=== PATIENT | female | born 1970 | race African-American/Black ===

== ENCOUNTER 2018-07-10 00:29 | Emergency (ER) | payer OTHER ==
[~2018-07-10] VITALS: Ht 167.6 cm; Wt 88.5 kg
[2018-07-10 00:32] VITALS: TEMP 98.1
[2018-07-10 00:58] LABS: BASO % 0.3 % (0.0-2.0); EOS # 0.1 (0.0-0.7); EOS % 1.8 % (0-4.0); GRAN # 3.2 (1.4-6.5); GRAN % 49.4 % (42.2-75.2); HEMOGLOBIN 12.1 g/dl (12.5-16.0); LYMPH # 2.7 (1.2-3.4); LYMPH % 40.8 % (20.0-51.0); MEAN CELL VOLUME 88 fl (80.0-100.0); MEAN CORPUSCULAR HEMOGLOBIN 29 pg (27.0-31.0); MEAN CORPUSCULAR HGB CONC 33 g/dl (33.0-37.0); MEAN PLATELET VOLUME 9.9 fl (7.4-10.4); MONO # 0.5 (0.1-0.6); MONO % 7.5 % (1.7-9.3); PLATELET COUNT 283 K/mm3 (130-400); RED BLOOD COUNT 4.12 M/mm3 (4.10-5.30); REDCELL DISTRIBUTION WIDTH-CV 13.5 % (11.5-14.5)
[2018-07-10 00:59] LABS: HEMATOCRIT 36.3 % (37.0-47.0)
[2018-07-10 01:08] LABS: ALANINE AMINOTRANSFERASE 31 U/L (9-52); ALBUMIN 3.9 gm/dL (3.5-5.0); ALKALINE PHOSPHATASE 69 U/L (50-136); ANION GAP 5 mmol/L (7-16); AST,SGOT 19 U/L (15-37); BILIRUBIN,TOTAL 0.2 mg/dL (0.0-1.0); BLOOD UREA NITROGEN 14 mg/dL (7-17); CALCIUM 9.2 mg/dL (8.4-10.2); CARBON DIOXIDE 26 mmol/L (22-30); CHLORIDE 110 mmol/L (98-107); CREATININE, serum 1.11 mg/dL (0.52-1.25); GLUCOSE 97 mg/dL (74-106); LIPASE 69 U/L (23-300); SODIUM 140 mmol/L (137-145); TOTAL PROTEIN 6.8 gm/dL (6.4-8.2)
[2018-07-10 01:12] LABS: C-REACTIVE PROTEIN 0.8 mg/dL (0.0-0.9)
[2018-07-10 01:21] LABS: ERYTHROCYTE SEDIMENTATION RATE 12 mm/hr (0-20); TROPONIN-I < 0.012 ng/mL (0.000-0.034)
[2018-07-10 05:02] VITALS: BP 111/67; PULSE 83
== END 2018-07-10 05:04 | disposition home or self-care (01) ==
LOC: COL.ER 00:29
PROVIDERS: Emergency Medicine
DX: R07.89 Other chest pain (principal); M79.7 Fibromyalgia